=== PATIENT | male | born 1985 | race Caucasian/White ===

== ENCOUNTER 2023-07-05 09:37 | Emergency (ER) | payer MEDICAID, SELFPAY ==
[2023-07-05 09:49] VITALS: BP 124/81; PULSE 85; RESP 18; TEMP 36.8; O2SAT 99; BMI 30.7
--- NOTE | 2023-07-05 09:57 | ED.EAR ---
HPI - Ear Problem General Chief complaint: Ear Problems Stated complaint: l ear pain Time Seen by Provider: 07/05/23 09:48 Source: patient and RN notes reviewed Mode of arrival: ambulatory Limitations: no limitations History of Present Illness HPI Narrative: This is a 38-year-old male, with no known medical problems, presenting to the emergency department complaints of left ear pain x3 weeks. Patient states that initially he was having intermittent left ear pain which has now become constant over the last week. He states that he has pain, as well as decreased hearing from his left ear. He has been trying [id number]-[id number] ear drops, Q-tips without any relief. Denies ear drainage. No fevers, chills, sore throat, nasal congestion. He is otherwise feeling well. Denies history of similar symptoms in the past. No other complaints or concerns at this time. MD Complaint: ear pain and decreased hearing Location: left ear Duration: constant Severity: moderate Relieving factors: nothing Exacerbating factors: palpation Discharge from ear: no Associated symptoms ear: decreased hearing Treatment prior to arrival: eardrops and oral analgesic Related Data Previous Rx's Medication Instructions Recorded amoxicillin 875 mg-potassium 1 tab PO BID 10 days #20 tabs 07/05/23 clavulanate 125 mg tablet ibuprofen 600 mg tablet 600 mg PO Q6H PRN pain #30 tabs 07/05/23 Allergies Allergy/AdvReac Type Severity Reaction Status Date / Time No Known Allergies Allergy Verified 07/05/23 09:49 Review of Systems Review of Systems: Yes all other systems are reviewed and are negative PMFSH Past Medical History Attestation statement: The following information was validated with the patient. Social History Social History Advance Directives: No Advance Directives Information Provided: No Physical Exam Vital Signs: Vital Signs: Last Vital Signs Temp 98.3 F 07/05/23 09:49 Pulse 85 07/05/23 09:49 Resp 18 07/05/23 09:49 BP 124/81 07/05/23 09:49 Pulse Ox 99 07/05/23 09:49 O2 Del Method Room Air 07/05/23 09:49 BMI result Body Mass Index 30.7 Const: Other: General: Awake, alert, and oriented X3. No acute distress. HEENT: Left TM is erythematous and bulging, auditory ear canal is nonedematous nonerythematous. Pain to palpation to the tragus, no pain with auricle or lobe tugging. No cervical anterior lymphadenopathy. No mastoid tenderness. Right TM unremarkable CVS: Normal heart rate and rhythm. Pulses normal. Respiratory: No respiratory distress Skin: Warm, dry, no rashes noted to exposed skin. Normal skin color. Normal skin turgor. Extremities: Normal to inspection Neuro: Oriented X 3. No motor deficit. No sensory deficit. Medical Decision Making Medical Decision Making [facility] Narrative: This is a 38-year-old male, with no known medical problems, presenting to the emergency department with complaints of left ear pain x3 weeks. On arrival, vital signs within normal limits. Patient is nontoxic appearing. Left ear canal nonedematous nonerythematous, left TM is dull, erythematous and bulging. Differential diagnoses include otitis media, otitis externa, cerumen impaction, TM perforation. Less likely mastoiditis. Patient's symptoms and physical exam findings consistent with otitis media, will treat with 10 day course of Augmentin. Patient given return precautions. Patient understands and agrees with plan. Patient stable for discharge. Differential Diagnosis Differential Diagnoses: The differential diagnosis associated with the presentation includes See above Prescription Management I considered prescription management with: Pain Medication and Antibiotic Discharge Plan Discharge Clinical Impression: Otitis media Patient Disposition: Home, Self-Care Instructions: Ear Infection (ED) Additional Instructions: You were seen in the emergency department due to left ear pain. Your left ear drum is infected which requires antibiotics for treatment. Finish the entire course of antibiotics even if you are feeling better. Do not put any ear drops or Q-tips in the ear canal as this can cause increased irritation. No swimming until you complete your antibiotics. You may take ibuprofen and/or Tylenol as needed for pain. If any new or worsening symptoms occur including but not limited to fevers, chills, worsening ear pain, drainage, chest pain, shortness of breath, please return for re-evaluation. Prescriptions: New amoxicillin-pot clavulanate 875-125 mg tablet 1 tab PO BID 10 Days Qty: 20 0RF ibuprofen 600 mg tablet 600 mg PO Q6H PRN (Reason: pain) Qty: 30 0RF
== END 2023-07-05 10:09 | disposition home or self-care (01) ==
PROVIDERS: Emergency Provider Emergency Medicine
DX: H66.92 Otitis media, unspecified, left ear (principal); H92.02 Otalgia, left ear
CPT/HCPCS: 99282; 99283